=== PATIENT | female | born 1985 | race African-American/Black ===

== ENCOUNTER 2023-01-08 12:04 | Emergency (ER) | payer MEDICAID ==
[~2023-01-08] VITALS: Ht 162.6 cm; Wt 55.0 kg
[2023-01-08 12:12] VITALS: BP 127/80; PULSE 88; RESP 16; TEMP 98.8; O2SAT 100
[2023-01-08] MEDS ORDERED: LORAZEPAM 0.5MG TABLET PO ONE (13:30)
[2023-01-08] MEDS ORDERED: VENL37.588 MT (13:30)
== END 2023-01-08 14:39 | disposition home or self-care (01) ==
LOC: ER 13:55
DX: F41.9 Anxiety disorder, unspecified (principal); I10 Essential (primary) hypertension; Z76.0 Encounter for issue of repeat prescription
CPT/HCPCS: 99283